=== PATIENT | female | born 1960 | race Caucasian/White ===

== ENCOUNTER 2019-02-27 14:58 | Outpatient (REF) | payer MEDICAID, SELFPAY ==
[2019-03-29 14:35] LABS: Result Summary NEGATIVE; Specimen WB Whole Blood
== END 2019-02-27 15:18 ==
LOC: NCHCN 14:58
PROVIDERS: Visit Provider Family Medicine
DX: Z84.81 Family history of carrier of genetic disease (principal)
CPT/HCPCS: 81403

== ENCOUNTER 2019-05-11 16:24 | Outpatient (REF) | payer MEDICAID, SELFPAY ==
[2019-05-11 21:30] LABS: ALT 44 U/L (14-59); AST 38 U/L (15-37); Albumin 3.9 g/dL (3.4-5.0); Alkaline Phosphatase 63 U/L (46-116); Anion Gap 10.2 mmol/L (3-11); BUN 11 mg/dL (7-18); Bilirubin, Total 0.7 mg/dL (0.2-1.0); CO2 28.8 mmol/L (21.0-32.0); CREATININE 0.69 mg/dL (0.55-1.02); Calcium 9.3 mg/dL (8.5-10.1); Chloride 103 mmol/L (98-107); Glucose 178 mg/dL (74-106); Potassium 4.4 mmol/L (3.5-5.1); Sodium 142 mmol/L (136-145); Total Protein 7.3 g/dL (6.4-8.2)
== END 2019-05-11 16:44 ==
LOC: NCHCN 16:24
PROVIDERS: Visit Provider Family Medicine
DX: E11.65 Type 2 diabetes mellitus with hyperglycemia (principal); I10 Essential (primary) hypertension; E78.5 Hyperlipidemia, unspecified; R79.89 Other specified abnormal findings of blood chemistry
CPT/HCPCS: 80053

== ENCOUNTER 2019-07-26 19:07 | Outpatient (REF) | payer MEDICAID, SELFPAY ==
[2019-07-26 22:14] LABS: Abs Immature Grans 0.02 k/cumm (0.0-0.09); Absolute Basophil Count 0.06 k/cumm (0.0-0.2); Absolute Lymphocyte Count 2.45 k/cumm (1.2-3.4); Absolute Monocyte Count 0.82 k/cumm (0.11-0.7); Absolute Neutrophil Count 6.39 k/cumm (1.2-6.7); Basophils % 0.6; HCT 41.3 % (36.0-46.0); HGB 13.3 g/dL (12.0-15.5); Immature Grans % 0.2 %; Lymphocytes % 24.6; Mean Corp. HGB Concentration 32.2 g/dL (32.0-36.0); Mean Corpuscular Hemoglobin 28.6 pg (27.0-33.0); Mean Corpuscular Volume 88.8 fL (80-95); Mean Platelet Volume 10.3 fL (8.0-11.0); Monocytes % 8.2; Neutrophils % 64.4; Platelet Count 322 x1000/uL (130-400); RBC 4.65 m/cumm (4.00-5.20); RBC Distribution Width 12.8 % (11.7-14.6); White Blood Cell Count 9.94 k/cumm (4.4-10.8)
[2019-07-26 22:16] LABS: ALT 62 U/L (14-59); AST 45 U/L (15-37); Albumin 4.1 g/dL (3.4-5.0); Alkaline Phosphatase 57 U/L (46-116); BUN 9 mg/dL (7-18); Bilirubin, Total 0.6 mg/dL (0.2-1.0); CREATININE 0.66 mg/dL (0.55-1.02); Chloride 102 mmol/L (98-107); Glucose 120 mg/dL (74-106); Lipase 221 U/L (73-393); Potassium 4.6 mmol/L (3.5-5.1); Sodium 139 mmol/L (136-145); Total Protein 7.5 g/dL (6.4-8.2)
[2019-07-26 22:56] LABS: ESR 31 mm/hr (0-30)
== END 2019-07-26 19:27 ==
LOC: NCHCN 19:07
PROVIDERS: Visit Provider Family Medicine
DX: R10.12 Left upper quadrant pain (principal); R10.9 Unspecified abdominal pain
CPT/HCPCS: 80053; 83690; 85652; 85025

== ENCOUNTER 2020-01-19 11:49 | Outpatient (REF) | payer MEDICAID, SELFPAY ==
--- NOTE | 2020-01-19 11:00 | PAPFT_PTH ---
PATIENT: Mia Reynoso LOC: [facility] U#:[id number] AGE/SX: 59/F ROOM: RE01/19/[address]: Vida Espinal : 1960 BED: DIS: 01/19/2020 SPEC #: [id number] RECD: 01/22/20 13:07 STATUS: LENA REAgnes #: [id number] URI: 01/19/20 11:[address]: Vida Espinal DEPT: [facility] Cytology RECD BY: Katie Sotelo ENTERED: 01/22/20 13:07 SP TYPE: PAPFT OTHR DR: Efra Flanagan Tissues: 1 - CX/ENDOCX FOR PAP SMEARS Procedures: PAP THIN PREP/[facility] Screening HPV DNA PROBE Comments: [id number]
== END 2020-01-19 12:09 ==
LOC: NCHCN 11:49
PROVIDERS: Visit Provider Family Medicine
DX: Z12.4 Encounter for screening for malignant neoplasm of cervix (principal); Z11.51 Encounter for screening for human papillomavirus (HPV)
CPT/HCPCS: 88142; 87624

== ENCOUNTER 2020-12-17 10:29 | Outpatient (REF) | payer MEDICAID, SELFPAY ==
[2020-12-17 13:54] LABS: ALT 36 U/L (14-59); AST 19 U/L (15-37); Albumin 3.8 g/dL (3.4-5.0); Alkaline Phosphatase 60 U/L (46-116); Anion Gap 7.3 mmol/L (3-11); BUN 11 mg/dL (7-18); Bilirubin, Total 0.5 mg/dL (0.2-1.0); CO2 29.7 mmol/L (21.0-32.0); CREATININE 0.7 mg/dL (0.55-1.02); Calcium 9.6 mg/dL (8.5-10.1); Calculated LDL 49 mg/dL (<100); Chloride 105 mmol/L (98-107); Cholesterol 111 mg/dL (<200); Glucose 131 mg/dL (74-106); HDL Cholesterol 41 mg/dL (40-60); Potassium 4.7 mmol/L (3.5-5.1); Sodium 142 mmol/L (136-145); Total Protein 7.2 g/dL (6.4-8.2); Triglyceride 108 mg/dL (<150)
== END 2020-12-17 10:30 | disposition home or self-care (01) ==
LOC: NCHCN 10:29
PROVIDERS: Visit Provider Family Medicine
DX: E78.5 Hyperlipidemia, unspecified (principal); I10 Essential (primary) hypertension; K76.0 Fatty (change of) liver, not elsewhere classified
CPT/HCPCS: 80053; 80061

== ENCOUNTER 2021-01-13 14:37 | Outpatient (REF) | payer MEDICAID, SELFPAY ==
[2021-01-13 19:12] LABS: ALT 34 U/L (14-59); AST 21 U/L (15-37); Albumin 3.9 g/dL (3.4-5.0); Alkaline Phosphatase 71 U/L (46-116); Anion Gap 9.4 mmol/L (3-11); BUN 16 mg/dL (7-18); Bilirubin, Total 0.9 mg/dL (0.2-1.0); CO2 27.6 mmol/L (21.0-32.0); CREATININE 0.7 mg/dL (0.55-1.02); Calcium 9.5 mg/dL (8.5-10.1); Chloride 103 mmol/L (98-107); Glucose 143 mg/dL (74-106); Potassium 4.4 mmol/L (3.5-5.1); Sodium 140 mmol/L (136-145); Total Protein 7.2 g/dL (6.4-8.2)
[2021-01-14 16:44] LABS: Rheumatoid Factor <8.6 IU/mL (<12.0)
[2021-01-15 08:46] LABS: Cyclic Citrullinated Peptide <2.5 U/mL (<5.0)
[2021-01-15 15:09] LABS: ANA Interpretation Positive (Negative)
[2021-01-16 11:29] LABS: dsDNA Ab, IgG <12.3 IU/mL (<30.0)
== END 2021-01-13 14:38 | disposition home or self-care (01) ==
LOC: LBN 14:37
PROVIDERS: Visit Provider Student in an Organized Health Care Education/Training Program
DX: D86.9 Sarcoidosis, unspecified (principal); R06.09 Other forms of dyspnea
CPT/HCPCS: 80053; 86200; 86038; 86225; 86431

== ENCOUNTER 2021-01-16 03:14 | Outpatient (CLI) | payer MEDICAID, SELFPAY ==
[2021-01-16] MEDS: Inhaler, Assist Device 1 EACH MC (09:01)
[2021-01-16] MEDS: Albuterol HFA 18 GM 200 PUFF INH IH (09:01)
--- NOTE | 2021-01-17 16:09 | W.PFT ---
Date of service: 01/16/21 Time of Service: 08:02 Pulmonary Function Test Result Requesting Provider Kassi Interpretation Spirometry: There is no airflow limitation. The forced vital capacity is low. There is no significant bronchodilator effect. Lung Volumes: Lung volumes are normal. Diffusion Capacity: The diffusion is normal. Airway Pressure: Airways resistance is normal. Impression Low forced vital capacity could be due to pseudorestriction in the setting of obesity, particularly given normal lung volumes and diffusion capacity. Clinical Correlation therefore is recommended.
[2021-01-18 09:31] LABS: Calcium Urine 24 hr 255 mg/24hrs (100-300); Timed Urine Volume 1700 mL
== END 2021-01-16 03:15 | disposition home or self-care (01) ==
LOC: RT 03:14
PROVIDERS: PCP Family Medicine; Visit Provider Student in an Organized Health Care Education/Training Program
DX: D86.9 Sarcoidosis, unspecified (principal)
CPT/HCPCS: 94060; 94726; 94729; 81050; 82340

== ENCOUNTER 2021-01-21 03:21 | Outpatient (CLI) | payer MEDICAID, SELFPAY ==
--- NOTE | 2021-01-21 08:45 | DI.CT_ITS ---
Exam(s) CT CHEST W EXAM: CT CHEST W CLINICAL HISTORY: SOB, undertreated sarcoidosis, ?progression, D86.9 TECHNIQUE: Imaging Protocol: Axial computed tomography images with coronal and sagittal reformatted images were created and reviewed CONTRAST MATERIAL: Intravenous: Omnipaque 350 Contrast volume:structured data in ml. COMPARISON: No exams were available for comparison FINDINGS: Tracheobronchial tree: No bronchiectasis or mucous plugging. Mediastinum and Abril: No dominant adenopathy or fluid collection. Pulmonary parenchyma: No consolidation or dominant measurable mass. No significant emphysematous or f ibrotic changes. Linear scarring in the anterior right upper lobe and along the right major fissure as well as in the left lower lobe. Pleura: No effusion or pneumothorax. Heart: The heart is not dilated. Mild coronary artery calcifications are seen. Aorta: Thoracic aorta non-dilated. Mild calcification at the aortic arch. Upper abdomen: Unremarkable. Lymph nodes: Within normal limits. Bones: Hemangioma T10. Mild degenerative disc changes. Soft tissues: Unremarkable. IMPRESSION: Mild linear scarring versus atelectasis. No findings specific for sarcoidosis. RADIATION DOSE DELIVERED: 613.95mGy.cm Total DLP DATA REPOSITORY: All CT scans at this facility are submitted to the National Radiology Data Registry (NRDR) Dose Index Registry (DIR) with the [employer] (A[employer]). RADIATION OPTIMIZATION: All CT scans at this facility use at least one of these dose optimization te chniques: automated exposure control; mA and/or kV adjustment per patient size (includes targeted exa ms where dose is matched to clinical indication); or iterative reconstruction.
[2021-01-21] MEDS: Omnipaque 350 MG/ML 100 ML BTL IJ (14:10)
== END 2021-01-21 03:41 ==
PROVIDERS: PCP Family Medicine; Visit Provider Student in an Organized Health Care Education/Training Program
DX: D86.9 Sarcoidosis, unspecified (principal); I25.10 Atherosclerotic heart disease of native coronary artery without angina pectoris; I70.0 Atherosclerosis of aorta; J98.4 Other disorders of lung; R06.02 Shortness of breath; R91.8 Other nonspecific abnormal finding of lung field
CPT/HCPCS: 71260; J3490

== ENCOUNTER 2022-02-17 17:27 | Outpatient (REF) | payer MEDICAID, SELFPAY ==
[2022-02-17 14:49] LABS: ALT 27 U/L (14-59); AST 19 U/L (15-37); Albumin 3.7 g/dL (3.4-5.0); Alkaline Phosphatase 64 U/L (46-116); Anion Gap 6.2 mmol/L (3-11); BUN 17 mg/dL (7-18); Bilirubin, Total 0.7 mg/dL (0.2-1.0); CO2 30.8 mmol/L (21.0-32.0); CREATININE 0.7 mg/dL (0.55-1.02); Calcium 9.2 mg/dL (8.5-10.1); Calculated LDL 62 mg/dL (<100); Chloride 104 mmol/L (98-107); Cholesterol 120 mg/dL (<200); Estimated GFR 97.12 (mL/min/1.73m2); Glucose 109 mg/dL (74-106); HDL Cholesterol 44 mg/dL (40-60); Potassium 4.4 mmol/L (3.5-5.1); Sodium 141 mmol/L (136-145); Total Protein 7.9 g/dL (6.4-8.2); Triglyceride 72 mg/dL (<150)
[2022-02-17 15:04] LABS: Hemoglobin A1C 6.3 % (<5.7)
== END 2022-02-17 17:28 | disposition home or self-care (01) ==
LOC: NCHCN 17:27
PROVIDERS: PCP Family Medicine; Visit Provider Family Medicine
DX: I10 Essential (primary) hypertension (principal); E11.9 Type 2 diabetes mellitus without complications; E78.5 Hyperlipidemia, unspecified
CPT/HCPCS: 80053; 80061; 83036

== ENCOUNTER 2023-07-15 14:36 | Outpatient (REF) | payer MEDICAID, SELFPAY ==
--- OUTSIDE RECORDS SUMMARY | 2023-07-15 14:39 | XMS_ITS | CCD ---
Author Name Unknown Address [address] [place] [address] [id number] Organization Unknown Address [address] [place] [address] [phone] Care Team Providers Care C Java Developer Name Role Phone MARKO LAZCANO Attending Physician [phone] Vital Signs Unknown or Not Available. Allergies Allergy Code Allergy Type Reaction Status PENICILLINS (CLASS) 71819 Drug allergy RASH Act vinayak SULFA (sulfonamide) 0 Drug allergy RASH Act vinayak STRAWBERRIES 0 Food allergy RASH Active Procedures Unknown or Not Available. History of Immunizations Unknown or Not Available. Problems Unknown or Not Available. Results Unknown or Not Available. Active Medications Unknown or Not Available. Medications Administered During Visit Unknown or Not Available. Encounters Encounter Diagnosis Diagnosis Code Start Date Epigastric pain [id number] 04/22/2021 Social History Smoking Status Code Start Date End Date Former smoker [id number] 05/31/1969 09/14/2009 Patient Decision Aids Unknown or Not Available. Discharge Instructions You were admitted to [facility] on 04/22/2021 12:52 with a principal diagnosis of Epigastric pain You were discharged from [facility] on 04/22/2021 12:52 Should you have any questions prior to discharge, please contact a member of your healthcare team. If you have left the hospital and have any questions, please contact your primary care physician. Chief Complaint and Reason For Visit Chief Complaint Date of Onset Epigastric pain Function Status Unknown or Not Available. Plan of Care Unknown or Not Available. Referral/Transition of Care Unknown or Not Available.
[2023-07-15 20:58] LABS: Anion Gap 6.8 mmol/L (3-11); BUN 12 mg/dL (7-18); CO2 31.2 mmol/L (21.0-32.0); CREATININE 0.7 mg/dL (0.55-1.02); Calcium 9.7 mg/dL (8.5-10.1); Calculated LDL 71 mg/dL (<100); Chloride 104 mmol/L (98-107); Cholesterol 137 mg/dL (<200); Estimated GFR 95.92 (mL/min/1.73m2); Glucose 113 mg/dL (74-106); HDL Cholesterol 47 mg/dL (40-60); Potassium 4.5 mmol/L (3.5-5.1); Sodium 142 mmol/L (136-145); Triglyceride 97 mg/dL (<150)
[2023-07-15 20:59] LABS: COMMENT (LAB VIEW ONLY) 149.55 mg/dL; Microalb ug/mg Crea 15.2 ug/mg Cr
[2023-07-15 21:13] LABS: Hemoglobin A1C 6.6 % (<5.7)
== END 2023-07-15 14:37 | disposition home or self-care (01) ==
LOC: NCHCN 14:36
PROVIDERS: PCP Family Medicine; Referring Provider Family Medicine; Visit Provider Family Medicine
DX: I10 Essential (primary) hypertension (principal); E11.9 Type 2 diabetes mellitus without complications
CPT/HCPCS: 80048; 80061; 82043; 82570; 83036

== ENCOUNTER 2024-10-05 15:10 | Outpatient (REF) | payer MEDICARE, SELFPAY ==
[2024-10-05 21:51] LABS: Anion Gap 7.8 mmol/L (3-11); BUN 20 mg/dL (7-18); CO2 28.2 mmol/L (21.0-32.0); CREATININE 0.7 mg/dL (0.55-1.02); Calcium 10.1 mg/dL (8.5-10.1); Calculated LDL 73 mg/dL (<100); Chloride 98 mmol/L (98-107); Cholesterol 166 mg/dL (<200); Estimated GFR 95.32 (mL/min/1.73m2); Glucose 404 mg/dL (74-106); HDL Cholesterol 43 mg/dL (>or=50); Potassium 4.6 mmol/L (3.5-5.1); Sodium 134 mmol/L (136-145); Triglyceride 252 mg/dL (<150)
== END 2024-10-05 15:11 | disposition home or self-care (01) ==
LOC: NCHCN 15:10
PROVIDERS: PCP Family Medicine; Visit Provider Family Medicine
DX: I10 Essential (primary) hypertension (principal); E78.5 Hyperlipidemia, unspecified
CPT/HCPCS: 80048; 80061